=== PATIENT | male | born 1995 | race Caucasian/White ===

== ENCOUNTER 2017-03-24 23:50 | Emergency (ER) | payer BC ==
[2017-03-25 02:10] LABS: #Basophils 0.1 thou/uL (0.0-0.2); #Eosinphils 0.1 thou/uL (0.0-0.7); #Lymphocytes 1.2 thou/uL (1.20-3.40); #Monocytes 1.1 thou/uL (0.11-0.59); %Basophils 0.7 % (0.0-1.0); %Eosinophils 0.8 % (0.0-10.0); %Lymphocytes 15.8 % (28.0-48.0); %Monocytes 14.3 % (0.0-4.0); Hematocrit 49.9 % (42.0-52.0); Mean Platelet Volume 6.1 fL (7.4-10.4); Red Blood Cell (RBC) Count 4.95 mill/uL (4.00-5.20); White Blood Cell (WBC) Count 7.4 thou/uL (4.8-10.8)
[2017-03-25 02:33] LABS: ALT (SGPT) 98 U/L (8-55); AST (SGOT) 83 U/L (10-45); Alkaline Phosphatase 52 U/L (Less than 750); Anion Gap 16 mmol/L (10-20); BUN (Urea Nitrogen) 11 mg/dL (8.4-21.0); Bilirubin, Total 0.8 mg/dL (0.2-1.2); CK (CPK) 103 U/L (30-200); Calc. Creatinine Clearance 0 mL/min (70-130); Calcium 10.5 mg/dL (7.8-10.44); Carbon Dioxide 26 mmol/L (22-29); Chloride 97 mmol/L (98-107); Estimated GFR-MDRD Greater than 90; Globulin 3.4 g/dL (2.4-3.5); Protein, Total 8.1 g/dL (6.0-8.3)
[2017-03-25 02:41] LABS: Troponin I Less than 0.010 ng/mL (< 0.028)
--- NOTE | 2017-03-25 08:22 | RAD ---
CHEST 1 VIEW: Date: 03/25/17 HISTORY: 21-year-old male with chest pain for 2 hours, with cough. FINDINGS: Heart size is normal. The lungs are clear. No evidence of pneumonia, edema, or pleural effusion. IMPRESSION: No acute intrathoracic disease. POS: [facility]
== END 2017-03-25 03:18 | disposition home or self-care (01) ==
LOC: ERS 23:50
DX: R07.89 Other chest pain (principal); F17.200 Nicotine dependence, unspecified, uncomplicated
CPT/HCPCS: 36415; 71010; 80053; 82550; 82553; 84484; 85025; 93005; 99406

== ENCOUNTER 2017-08-19 19:16 | Emergency (ER) | payer BC ==
[2017-08-19 20:25] LABS: #Basophils 0.1 thou/uL (0.0-0.2); #Eosinphils 0.1 thou/uL (0.0-0.7); #Lymphocytes 2.4 thou/uL (1.20-3.40); #Neutrophils 8.5 thou/uL (1.40-6.50); %Basophils 0.8 % (0.0-1.0); %Eosinophils 0.7 % (0.0-10.0); %Lymphocytes 19.7 % (28.0-48.0); %Monocytes 8.2 % (0.0-4.0); %Neutrophils 70.5 % (31.0-61.0); Hemoglobin 17.8 g/dL (14.0-18.0); Mean Corpuscular HGB CONC 34.8 g/dL (32.0-36.0); Mean Corpuscular Hemoglobin 32.9 pg (25.0-35.0); Mean Corpuscular Volume 94.7 fl (77.0-87.0); Mean Platelet Volume 6.1 fL (7.4-10.4); Platelet Count 369 thou/uL (130-400); RBC Distribution Width 11.6 % (11.5-14.5); Red Blood Cell (RBC) Count 5.42 mill/uL (4.00-5.20); White Blood Cell (WBC) Count 12.1 thou/uL (4.8-10.8)
--- NOTE | 2017-08-19 20:44 | RAD ---
AP VIEW CHEST: INDICATIONS: Chest pain. COMPARISON: 03/25/2017 IMPRESSION: No acute abnormality. The lungs are clear. The cardiothymic silhouette is within normal limits. No acute osseous abnormality is evident. POS: [facility]
[2017-08-19 20:47] LABS: ALT (SGPT) 13 U/L (8-55); AST (SGOT) 18 U/L (10-45); Albumin 4.9 g/dL (3.5-5.0); Alkaline Phosphatase 42 U/L (Less than 750); Anion Gap 13 mmol/L (10-20); BUN (Urea Nitrogen) 17 mg/dL (8.4-21.0); Bilirubin, Total 1.1 mg/dL (0.2-1.2); Calc. Creatinine Clearance 0 mL/min (70-130); Calcium 10.6 mg/dL (7.8-10.44); Carbon Dioxide 26 mmol/L (22-29); Chloride 101 mmol/L (98-107); Estimated GFR-MDRD Greater than 90; Globulin 3.1 g/dL (2.4-3.5); Glucose 94 mg/dL (70-105); Lipase 35 U/L (8-78); Potassium 3.7 mmol/L (3.5-5.1); Sodium 136 mmol/L (136-145)
[2017-08-19 20:49] LABS: Troponin I Less than 0.010 ng/mL (< 0.028)
== END 2017-08-19 23:59 | disposition home or self-care (01) ==
LOC: ERS 19:16
DX: R07.89 Other chest pain (principal); F17.200 Nicotine dependence, unspecified, uncomplicated; Z79.899 Other long term (current) drug therapy
CPT/HCPCS: 36415; 71045; 80053; 82553; 83690; 84443; 84484; 85025; 85379; 93005; 96360; 99406